=== PATIENT | female | born 1985 | race Caucasian/White ===

== ENCOUNTER 2022-07-03 14:19 | Emergency (ER) | payer OTHER ==
[2022-07-03 14:35] VITALS: BP 110/78; PULSE 92; RESP 16; TEMP 98.1; BMI 28.3
[2022-07-03] MEDS ORDERED: IBUPROFEN 600 MG TABLET (FP) PO ONE ×2 (15:14→15:16)
== END 2022-07-03 16:14 | disposition home or self-care (01) ==
LOC: JERFT 14:19 → JER 14:19 → JERFT 16:14
DX: S76.911A Strain of unspecified muscles, fascia and tendons at thigh level, right thigh, initial encounter (principal); V29.99XA Rider (driver) (passenger) of other motorcycle injured in unspecified traffic accident, initial encounter
CPT/HCPCS: 73552-TC-RT-FY; 99283-25

== ENCOUNTER 2022-09-04 15:04 | Emergency (ER) | payer OTHER ==
[2022-09-04 15:34] VITALS: BP 118/81; PULSE 74; RESP 18; TEMP 98.3; BMI 27.1
== END 2022-09-04 18:19 | disposition home or self-care (01) ==
LOC: JERFT 15:04 → JER 15:04 → JERFT 18:19
DX: M79.662 Pain in left lower leg (principal); S86.912A Strain of unspecified muscle(s) and tendon(s) at lower leg level, left leg, initial encounter; V29.91XA Electric (assisted) bicycle rider (driver) (passenger) injured in unspecified traffic accident, initial encounter; Y93.55 Activity, bike riding
CPT/HCPCS: 73590-TC-LT-FY; 99283-25

== ENCOUNTER 2022-10-30 15:10 | Day surgery (SDC) | payer OTHER ==
[2022-10-30 15:24] VITALS: BMI 28.3
[2022-10-30] MEDS ORDERED: SODIUM CHLORIDE 0.9% 500 ML INFUS.BAG IV ONE (15:57)
[2022-10-30] MEDS ORDERED: FAMOTIDINE 20 MG/50 ML IVPB 20 MG/50 ML MG IVPB ONE ×2 (15:57→16:01)
[2022-10-30] MEDS ORDERED: ONDANSETRON 4 MG/2 ML VIAL IVPUSH ONE ×2 (15:57→17:08)
[2022-10-30] MEDS ORDERED: ONDANSETRON 4 MG/2 ML VIAL ONE ×2 (16:01→17:33)
[2022-10-30 17:03] LABS: BASO % 0.8 % (0-2.0); EOS % 3.3 % (0-4.5); HEMATOCRIT 40.2 % (32.4-45.2); HEMOGLOBIN 13.7 GM/dL (10.7-15.3); LYMPH % 33.7 % (8-40); MCH 30.5 pg (25.7-33.7); MCHC 34.1 g/dl (32.0-36.0); MEAN CELL VOLUME 89.4 fl (80-96); MONO % 4.6 % (3.8-10.2); NEUT % 57.6 % (42.8-82.8); PLATELET COUNT 388 10^3/uL (134-434); RDW 13.1 % (11.6-15.6); WHITE BLOOD COUNT 12.2 K/mm3 (4.0-10.0)
[2022-10-30 17:04] LABS: EPI CELLS >36 /uL (0-25.1); HYALINE CASTS 1 /uL (0-3.1); URINE APPEARANCE CLEAR; URINE BACTERIA 1471 /uL (0-1359); URINE BILIRUBIN NEGATIVE (NEGATIVE); URINE COLOR YELLOW; URINE GLUCOSE (UA) NEGATIVE (NEGATIVE); URINE KETONE NEGATIVE (NEGATIVE); URINE LEUK ESTERASE NEGATIVE (NEGATIVE); URINE NITRITE NEGATIVE (NEGATIVE); URINE PROTEIN NEGATIVE (NEGATIVE); URINE RBC 13 /uL (0-23.9); URINE UROBILINOGEN 0.2 mg/dL (0.2-1.0); URINE WBC 42 /uL (0-25.8)
[2022-10-30 17:05] LABS: HCG,QUALITATIVE URINE Negative
[2022-10-30] MEDS ORDERED: KETOROLAC TROMETHAMINE 30 MG/1 ML VIAL IVPUSH ONE (17:08)
[2022-10-30 17:17] LABS: POTASSIUM 3.9 mmol/L (3.5-5.1)
[2022-10-30 17:18] LABS: CALCIUM 9.5 mg/dL (8.5-10.1)
[2022-10-30 17:19] LABS: BLOOD UREA NITROGEN 13.6 mg/dL (7-18)
[2022-10-30 17:22] LABS: CREATININE 1.2 mg/dL (0.55-1.3)
[2022-10-30 17:24] LABS: BILIRUBIN,TOTAL 0.4 mg/dL (0.2-1); TOT PROT 7.8 g/dl (6.4-8.2)
[2022-10-30] MEDS ORDERED: KETOROLAC TROMETHAMINE 30 MG/1 ML VIAL ONE (17:33)
[2022-10-30] MEDS ORDERED: ACETAMINOPHEN 1000 MG/100 ML BAG IVPB ONE (19:37)
[2022-10-30] MEDS ORDERED: PIPERACILLIN/TAZOB 4.5 GM 4.5 GM in DEXTROSE 5%-WATER 100 ML IVPB ONE (19:42)
[2022-10-30] MEDS ORDERED: ACETAMINOPHEN INJECTION 100 ML IVPB ONE (19:42)
[2022-10-30] MEDS ORDERED: PIPERACILLIN/TAZOB 4.5 GM 4.5 GM/100 ML BAG IVPB ONE (19:49)
[2022-10-30 20:04] LABS: INR 1.03 (0.83-1.09)
[2022-10-30 20:07] LABS: ACTIVATED PTT 36.2 SECONDS (25.2-36.5)
[2022-10-30] MEDS ORDERED: LACTATED RINGERS SOLUTION 1,000 ML IV SCH (21:00)
[2022-10-30] MEDS ORDERED: KETOROLAC TROMETHAMINE 15 MG/ML VIAL ONE (21:51)
[2022-10-30] MEDS: KETOROLAC TROMETHAMINE 15 MG/ML VIAL IVPUSH PRN (21:56)
[2022-10-31] MEDS: ACETAMINOPHEN 1000 MG/100 ML BAG IVPB PRN ×2 (00:55→06:49)
[2022-10-31] MEDS ORDERED: PIPERACILLIN/TAZOB 3.375 GM 3.375 GM in DEXTROSE 5%-WATER - 50 ML IVPB SCH ×2 (02:00→20:00)
[2022-10-31] MEDS: PIPERACILLIN/TAZOB 3.375 GM 3.375 GM in DEXTROSE 5%-WATER - 50 ML IVPB SCH ×2 (03:09→15:19)
[2022-10-31] MEDS: KETOROLAC TROMETHAMINE 15 MG/ML VIAL IVPUSH PRN ×2 (03:10→18:05)
[2022-10-31] MEDS ORDERED: LEVOTHYROXINE NA 112 MCG TABLET (FP) PO SCH (07:00)
[2022-10-31] MEDS ORDERED: KETOROLAC TROMETHAMINE 15 MG/ML VIAL IVPUSH ONE (08:30)
[2022-10-31 09:06] LABS: HEMATOCRIT 35.1 % (32.4-45.2); HEMOGLOBIN 11.5 GM/dL (10.7-15.3); MCH 30.2 pg (25.7-33.7); MCHC 32.8 g/dl (32.0-36.0); MEAN CELL VOLUME 92.1 fl (80-96); MEAN PLT VOLUME 8.5 fl (7.5-11.1); PLATELET COUNT 291 10^3/uL (134-434); RBC 3.81 M/mm3 (3.60-5.2); RDW 13.2 % (11.6-15.6); WHITE BLOOD COUNT 11.7 K/mm3 (4.0-10.0)
[2022-10-31 09:14] LABS: POTASSIUM 3.9 mmol/L (3.5-5.1)
[2022-10-31 09:20] LABS: CALCIUM 8.4 mg/dL (8.5-10.1)
[2022-10-31 09:21] LABS: BLOOD UREA NITROGEN 12.1 mg/dL (7-18)
[2022-10-31 09:22] LABS: CREATININE 1.5 mg/dL (0.55-1.3)
[2022-10-31 09:24] LABS: BILIRUBIN,TOTAL 0.6 mg/dL (0.2-1)
[2022-10-31 09:28] LABS: ALBUMIN 3.2 g/dl (3.4-5.0)
[2022-10-31] MEDS ORDERED: HYDROCORTISONE 10 MG TABLET PO SCH (10:00)
[2022-10-31] MEDS ORDERED: ENOXAPARIN NA (PORCINE) 40 MG/0.4 ML DISP.SYRIN SQ SCH (10:00)
[2022-10-31 10:57] LABS: INR 1.2 (0.83-1.09); PROTHROMBIN TIME (PATIENT) 13.9 SEC (9.7-13.0)
[2022-10-31] MEDS ORDERED: BUPIVACAINE HCL/PF 0.5% (5MG/ML) 10 ML VIAL ONE (12:02)
[2022-10-31] MEDS ORDERED: MIDAZOLAM HCL 2 MG/2 ML SINGLE DOSE VIAL ONE (12:10)
[2022-10-31] MEDS ORDERED: PROPOFOL 20 ML ONE ×2 (12:10→14:23)
[2022-10-31] MEDS ORDERED: BUPIVACAINE HCL/PF 0.5% (5MG/ML) 10 ML VIAL IJ ONE ×2 (13:23)
[2022-10-31] MEDS ORDERED: NEOSTIGMINE METHYLSULFATE 0.5 MG/1 ML - 10 ML MDV ONE (13:24)
[2022-10-31] MEDS ORDERED: SUGAMMADEX SODIUM 200 MG/2 ML VIAL ONE (14:14)
[2022-10-31] MEDS ORDERED: PROMETHAZINE HCL 25 MG/1 ML VIAL IVPB PRN (14:57)
[2022-10-31] MEDS ORDERED: ACETAMINOPHEN 1000 MG/100 ML BAG IVPB PRN (15:14)
[2022-10-31 18:01] VITALS: RESP 20; TEMP 98.3
[2022-10-31] MEDS: LACTATED RINGERS SOLUTION 1,000 ML IV SCH (18:06)
[2022-11-01] MEDS: KETOROLAC TROMETHAMINE 15 MG/ML VIAL IVPUSH PRN ×2 (00:44→06:06)
[2022-11-01] MEDS ORDERED: PIPERACILLIN/TAZOB 3.375 GM 3.375 GM in DEXTROSE 5%-WATER - 50 ML IVPB SCH (02:00)
[2022-11-01] MEDS ORDERED: LEVOTHYROXINE NA 112 MCG TABLET (FP) PO SCH (07:00)
[2022-11-01] MEDS ORDERED: oxyCODONE HCL 5 MG TABLET PO PRN (07:52)
[2022-11-01] MEDS: LACTATED RINGERS SOLUTION 1,000 ML IV SCH (08:26)
[2022-11-01] MEDS ORDERED: ENOXAPARIN NA (PORCINE) 40 MG/0.4 ML DISP.SYRIN SQ SCH (10:00)
[2022-11-01] MEDS ORDERED: HYDROCORTISONE 10 MG TABLET PO SCH (10:00)
[2022-11-01] MEDS: DOCUSATE SODIUM 100 MG CAPSULE (FP) PO SCH ×2 (10:34→15:23)
[2022-11-01] MEDS: ACETAMINOPHEN 1000 MG/100 ML BAG IVPB SCH ×2 (10:34→15:25)
[2022-11-01] MEDS ORDERED: SODIUM CHLORIDE 1,000 ML IV SCH (11:45)
[2022-11-01] MEDS ORDERED: diphenhydrAMINE HCL 25 MG CAPSULE (FP) PO PRN (11:51)
[2022-11-01] MEDS ORDERED: IBUPROFEN 600 MG TABLET (FP) PO PRN (12:15)
[2022-11-01 15:56] VITALS: BP 114/57; PULSE 97
[2022-11-01 16:35] LABS: POTASSIUM 4.2 mmol/L (3.5-5.1)
[2022-11-01 16:37] LABS: CALCIUM 8.4 mg/dL (8.5-10.1)
[2022-11-01 16:38] LABS: ALBUMIN 2.7 g/dl (3.4-5.0); BLOOD UREA NITROGEN 11.7 mg/dL (7-18)
[2022-11-01 16:41] LABS: CREATININE 1.5 mg/dL (0.55-1.3)
[2022-11-01 16:42] LABS: BILIRUBIN,TOTAL 0.4 mg/dL (0.2-1); TOT PROT 5.7 g/dl (6.4-8.2)
== END 2022-11-01 19:27 | disposition home or self-care (01) ==
LOC: JER 15:10 → UNDOADMOB 19:59 → JERBED 19:59 → OBSVTOIN 20:55 → INTOOBSV 20:55 → J8W 10-31 00:37 → JERBED 10-31 00:37 → JASUSAT 10-31 09:59 → J8W 10-31 10:03 → JASUSAT 11-01 19:27
PROVIDERS: ATTEND Nurse Practitioner Family
PROC: 0DTJ4ZZ Resection of Appendix, Percutaneous Endoscopic Approach (ICD-10-PCS; principal; 2022-10-31 14:30)
DX: K35.80 Unspecified acute appendicitis (principal)
CPT/HCPCS: 36415; 74177-TC; 80053; 81003; 84703; 85025; 85027; 85610; 85730; 86850; 86900; 86901; 87070; 87075; 87086; 87205; 88304-TC; 93005; 93010; 94760; 99285-25; G0378; Q9967